=== PATIENT | female | born 1950 | race Caucasian/White ===

== ENCOUNTER 2021-09-03 12:46 | Day surgery (SDC) | payer MEDICARE ==
[~2021-09-03] VITALS: Ht 157.5 cm; Wt 58.7 kg
[~2021-09-03 12:46] MED LIST: AMLODIPINE-ATO1 EAC8; AMLODIPINE-ATO1 EACH; ASPI81CH PO; ATOR10 PO; Amlodipine Bes2.5 MG PO; Aspirin EC81 MG; CALCIUM 1,0001 EACH PO; CHOL10002 PO; CONEST.625 PO; Coq-10100 MG PO; FOLI1; GLUC500 PO; Garlic500 MG PO; Hair, Skin & N1 EACH PO; KRILL OIL500 MG PO; MAGOXI400 PO; METR59TL; Methotrexa25 MG/1 ML; NITR.4SL SL; OTEZLA30 MG; Sudogest60 MG PO; Sulfazine500 MG
== END 2021-09-03 15:20 | disposition home or self-care (01) ==
LOC: ORSCSDS 12:46
PROVIDERS: Student in an Organized Health Care Education/Training Program
PROC: 0DBN8ZX Excision of Sigmoid Colon, Via Natural or Artificial Opening Endoscopic, Diagnostic (ICD-10-PCS; principal; 2021-09-03 14:15)
PROC: 0DBL8ZX Excision of Transverse Colon, Via Natural or Artificial Opening Endoscopic, Diagnostic (ICD-10-PCS; principal; 2021-09-03 14:15)
DX: Z12.11 Encounter for screening for malignant neoplasm of colon (principal); Z80.0 Family history of malignant neoplasm of digestive organs; K63.5 Polyp of colon; D12.3 Benign neoplasm of transverse colon; K64.8 Other hemorrhoids; K62.89 Other specified diseases of anus and rectum; K57.30 Diverticulosis of large intestine without perforation or abscess without bleeding; I10 Essential (primary) hypertension; E78.5 Hyperlipidemia, unspecified; Z79.82 Long term (current) use of aspirin; Z79.899 Other long term (current) drug therapy
CPT/HCPCS: 88305; J0461; J2405; J2704; J7120

== ENCOUNTER → 2022-01-29 | Outpatient (CLI) | payer MEDICARE | END | disposition home or self-care (01) | LOC: LAB SHORT 15:08 | DX: D36.11 Benign neoplasm of peripheral nerves and autonomic nervous system of face, head, and neck (principal) | CPT/HCPCS: 88304; 88305 ==